=== PATIENT | male | born 2005 | race Caucasian/White ===

== ENCOUNTER 2024-12-15 01:00 | Emergency (ER) | payer OTHER ==
[~2024-12-15] VITALS: Ht 167.6 cm; Wt 100.0 kg
[2024-12-15 01:06] VITALS: TEMP 36.8; O2SAT 99
[2024-12-15 03:01] LABS: BASOPHILS % 0.2 % (0.0-2.0); EOSINOPHILS % 0.3 % (0.0-5.0); HEMATOCRIT. 40.7 % (42.0-52.0); HEMOGLOBIN. 13.8 g/dL (14.0-18.0); LYMPHOCYTES % 13.9 % (20.0-50.0); MEAN CORPUSCULAR HEMOGLOBIN 28.5 pg (28.0-32.0); MEAN CORPUSCULAR HGB CONC 33.9 g/dL (31.0-37.0); MONOCYTES % 6.4 % (2.0-8.0); NEUTROPHILS % 79.2 % (40.0-76.0); PLATELET 286 x1000/uL (130-400); RED BLOOD CELL COUNT 4.85 mill/uL (4.7-6.1); RED CELL DISTRIBUTION WIDTH 13.1 % (11.6-14.6); WHITE BLOOD COUNT 14.5 x1000/uL (4.5-11.0)
[2024-12-15 03:02] LABS: CHLORIDE 107 mEq/L (98-107); POTASSIUM 3.5 mEq/L (3.5-5.1); SODIUM 142 mEq/L (136-145)
[2024-12-15 03:03] LABS: CARBON DIOXIDE 27 mEq/L (21-32)
[2024-12-15 03:08] LABS: GLUCOSE 105 mg/dL (70-105); UREA NITROGEN BLOOD 12 mg/dL (9-23)
[2024-12-15] MEDS: KETOROLAC 30MG/ML VIAL IM ONE (04:44)
[2024-12-15] MEDS: LORAZEPAM 2MG/ML INJ IM ONE (04:44)
[2024-12-15 05:11] VITALS: BP 129/64; PULSE 107; RESP 16; O2SAT 98
== END 2024-12-15 05:14 | disposition home or self-care (01) ==
LOC: ER 01:00
DX: T40.711A Poisoning by cannabis, accidental (unintentional), initial encounter (principal); F41.9 Anxiety disorder, unspecified; Y92.89 Other specified places as the place of occurrence of the external cause
CPT/HCPCS: 36415; 80048; 85025; 99283